=== PATIENT | female | born 1955 | race Caucasian/White ===

== ENCOUNTER 2021-08-05 12:57 | Emergency (ER) | payer MEDICARE ==
[~2021-08-05] VITALS: Wt 102.4 kg
[2021-08-05] MEDS ORDERED: ADVAIR DISKUS1 DSK (13:03)
[2021-08-05] MEDS ORDERED: ROPINIROLE HY0.25 MG (13:03)
[2021-08-05] MEDS ORDERED: LYRICA 25MG CAP25 MG (13:03)
[2021-08-05] MEDS ORDERED: PROAIR HFA0.09 MG/AC IH (13:03)
[2021-08-05 13:35] LABS: BASO # 0.01 K/mm3 (0.02-0.10); EOS # 0.25 K/mm3 (0.04-0.40); EOS % 3.4 % (1.0-5.0); HEMATOCRIT 37.8 % (37.0-47.0); HEMOGLOBIN 11.7 g/dL (12.5-16.0); LYMPH# 1.39 K/mm3 (1.50-4.00); MEAN CELL VOLUME 78 fl (78-100); MEAN CORPUSCULAR HEMOGLOBIN 24 pg (27-31); MEAN CORPUSCULAR HGB CONC 31 g/dL (33-37); MEAN PLATELET VOLUME 8.8 fl (7.4-10.4); MONO # 0.39 K/mm3 (0.20-0.80); NEU # 5.37 K/mm3 (1.40-6.50); PLATELET COUNT 292 K/mm3 (130-400); RED BLOOD COUNT 4.82 M/mm3 (4.10-5.30); WHITE BLOOD COUNT 7.4 K/mm3 (4.8-10.8)
[2021-08-05 13:51] LABS: D-DIMER 0.87 mg/L FEU (0.15-0.50)
[2021-08-05 14:08] LABS: ALBUMIN 3.8 g/dL (3.4-4.8)
[2021-08-05 14:09] LABS: POTASSIUM 3.7 mmol/L (3.5-5.1)
[2021-08-05 14:10] LABS: CALCIUM 8.6 mg/dL (8.3-10.5)
[2021-08-05 14:11] LABS: TOTAL PROTEIN 7.3 g/dL (6.2-8.1)
[2021-08-05 14:13] LABS: TOTAL BILIRUBIN 0.4 mg/dL (0.2-1.2)
[2021-08-05] MEDS ORDERED: LIDOCAINE HC20 MG/M1 MM (16:11)
[2021-08-05 16:26] VITALS: BP 147/75
== END 2021-08-05 16:17 | disposition home or self-care (01) ==
LOC: ED 12:57
PROVIDERS: Physician Assistant
DX: J44.9 Chronic obstructive pulmonary disease, unspecified (principal); B34.9 Viral infection, unspecified; K76.0 Fatty (change of) liver, not elsewhere classified; R79.1 Abnormal coagulation profile; Z86.19 Personal history of other infectious and parasitic diseases; Z20.822 Contact with and (suspected) exposure to COVID-19
CPT/HCPCS: Q9967

== ENCOUNTER 2021-08-12 21:52 | Emergency (ER) | payer MEDICARE ==
[~2021-08-12] VITALS: Ht 167.6 cm; Wt 90.9 kg
[~2021-08-12 21:52] MED LIST: ADVAIR DISKUS1 DSK; LIDOCAINE HC20 MG/M1 MM; LYRICA 25MG CAP25 MG; PROAIR HFA0.09 MG/AC IH; ROPINIROLE HY0.25 MG; ULTRAM50 M1 PO
[2021-08-12] MEDS ORDERED: CYCLOBENZAPRINE10 M1 PO (23:01)
[2021-08-12] MEDS ORDERED: ROPINIROLE HYDRO3 MG PO (23:02)
[2021-08-12] MEDS ORDERED: GOOD NEIGHBOR180 MG PO (23:03)
[2021-08-12] MEDS ORDERED: CYMBALTA30 M1 PO (23:03)
[2021-08-12] MEDS ORDERED: BENADRYL ALLERG25 M2 PO (23:04)
[2021-08-12] MEDS ORDERED: TOPCARE LAXATIVE5 MG PO (23:04)
[2021-08-12] MEDS ORDERED: ATIVAN0.5 MG PO (23:05)
[2021-08-12] MEDS ORDERED: LYRICA75 MG PO (23:06)
[2021-08-12] MEDS ORDERED: MYCELEX10 MG/TAB PO (23:06)
[2021-08-12] MEDS ORDERED: MAGIC MOUTHWASH1 M1 (23:08)
[2021-08-13] MEDS ORDERED: DIFLUCAN100 M1 PO (00:07)
[2021-08-13 00:15] VITALS: BP 138/60
== END 2021-08-13 00:15 | disposition home or self-care (01) ==
LOC: ED 21:52
DX: M54.50 Low back pain, unspecified (principal); J44.9 Chronic obstructive pulmonary disease, unspecified; M79.7 Fibromyalgia; F41.9 Anxiety disorder, unspecified; Z79.899 Other long term (current) drug therapy; W10.9XXA Fall (on) (from) unspecified stairs and steps, initial encounter
CPT/HCPCS: J1885